=== PATIENT | male | born 1970 | race Caucasian/White ===

== ENCOUNTER 2022-07-15 16:33 | Emergency (ER) | payer OTHER ==
[~2022-07-15 16:33] MED LIST: LOPRESSOR 25 MG25 MG PO
[2022-07-15 18:01] LABS: HEMOGLOBIN 15.3 gm/dl (14.0-17.5); RED BLOOD COUNT 5.09 M/UL (4.20-5.50); WHITE BLOOD COUNT 7.5 K/UL (4.5-11.0)
[2022-07-15 19:05] LABS: BUN/CREATININE RATIO 21 (0-10)
== END 2022-07-15 20:55 | disposition home or self-care (01) ==
LOC: ER1 16:33
PROVIDERS: Physician Assistant
DX: I73.9 Peripheral vascular disease, unspecified (principal); I10 Essential (primary) hypertension; J44.9 Chronic obstructive pulmonary disease, unspecified; F17.210 Nicotine dependence, cigarettes, uncomplicated; Z51.81 Encounter for therapeutic drug level monitoring
CPT/HCPCS: 75635; 80053; 85025; 85379; 85610; 85730; 99283; Q9967